=== PATIENT | female | born 1955 | race Caucasian/White ===

== ENCOUNTER → 2018-02-12 13:08 | Outpatient (CLI) | payer OTHER, SELFPAY ==
--- NOTE | 2018-02-12 | DI.RAD.S_ITS ---
PROCEDURE: XR KNEE LT 3V INDICATIONS: Acute pain of left knee TECHNIQUE: 3 views of the knee were acquired. COMPARISON: None. FINDINGS: Bones: No fractures or dislocations but there is moderate degenerative joint space thinning at the medial compartment and the patellofemoral joint and mild such degeneration of the lateral compartment. No suspicious bony lesions. Soft tissues: No joint effusion. No suspicious soft tissue calcifications. IMPRESSION: Mild to moderate left knee joint tricompartmental degenerative osteoarthritis without joint effusion or loose body, or trauma. Dictated by: Juan Jose Go M.D. on 02/12/2018 at 14:13 Approved by: Juan Jose Go M.D. on 02/12/2018 at 14:14
== END ==
PROVIDERS: PCP Nurse Practitioner; Visit Provider Nurse Practitioner
DX: M25.562 Pain in left knee (principal); M17.12 Unilateral primary osteoarthritis, left knee
CPT/HCPCS: 73562

== ENCOUNTER → 2018-11-01 10:45 | Outpatient (CLI) | payer OTHER, SELFPAY ==
--- NOTE | 2018-11-01 | DI.RAD.S_ITS ---
PROCEDURE: XR KNEE LT 3V INDICATIONS: KNEE PAIN TECHNIQUE: 3 views of the knee were acquired. COMPARISON: None. FINDINGS: Bones: No acute fracture dislocation. There is moderate medial femorotibial compartment narrowing. There are small tricompartmental osteophytes. Soft tissues: No joint effusion. No suspicious soft tissue calcifications. IMPRESSION: Mild knee osteoarthritis. Dictated by: Dora Cespedes M.D. on 11/01/2018 at 11:50 Approved by: Dora Cespedes M.D. on 11/01/2018 at 11:50
--- NOTE | 2018-11-01 | DI.RAD.S_ITS ---
PROCEDURE: XR HUMERUS RT 2V INDICATIONS: ARM PAIN TECHNIQUE: 2 views of the humerus were acquired. COMPARISON: None. FINDINGS: Bones: No fractures or dislocations. No suspicious bony lesions. There is mild acromioclavicular joint space narrowing. Soft tissues: No suspicious soft tissue calcifications. IMPRESSION: Mild degenerative change. No acute radiographic findings. Dictated by: Dora Cespedes M.D. on 11/01/2018 at 11:48 Approved by: Dora Cespedes M.D. on 11/01/2018 at 11:49
--- NOTE | 2018-11-01 | DI.RAD.S_ITS ---
PROCEDURE: XR HIP W PEL IF DONE BILAT 2V INDICATIONS: HIP PAIN TECHNIQUE: AP pelvis with lateral view(s) of the bilateral hip(s). COMPARISON: None. FINDINGS: Bones: No fractures or dislocations. Pelvic ring appears intact. There is mild bilateral hip joint space narrowing and osteophytosis. No suspicious bony lesions. Soft tissues: The visualized bowel gas pattern is normal. No suspicious soft tissue calcifications. Surgical clips are projected over the right iliac wing. IMPRESSION: Mild bilateral hip osteoarthritis. Dictated by: Dora Cespedes M.D. on 11/01/2018 at 11:49 Approved by: Dora Cespedes M.D. on 11/01/2018 at 11:50
== END ==
PROVIDERS: Family Provider Nurse Practitioner; PCP Nurse Practitioner; Visit Provider Nurse Practitioner
DX: M16.0 Bilateral primary osteoarthritis of hip (principal); M17.12 Unilateral primary osteoarthritis, left knee; M79.601 Pain in right arm; M25.562 Pain in left knee; M25.552 Pain in left hip; G89.29 Other chronic pain
CPT/HCPCS: 73060; 73521; 73562

== ENCOUNTER → 2019-06-02 12:12 | Outpatient (CLI) | payer OTHER, SELFPAY ==
--- NOTE | 2019-06-02 12:25 | DI.RAD.S_ITS ---
PROCEDURE: XR HAND RT MIN 3V INDICATIONS: RT HAND TENDONITIS TECHNIQUE: 3 views of the hand(s) acquired. COMPARISON: None. FINDINGS: Bones: No fractures or dislocations. Carpal bones are normally aligned. No suspicious bony lesions. Soft tissues: No suspicious soft tissue calcifications. IMPRESSION: Moderate arthritic change at the distal interphalangeal joints, no malalignment. Dictated by: Juan Jose Go M.D. on 06/02/2019 at 12:48 Approved by: Juan Jose Go M.D. on 06/02/2019 at 12:48
== END ==
PROVIDERS: Family Provider Nurse Practitioner; PCP Nurse Practitioner; Referring Provider Nurse Practitioner; Visit Provider Nurse Practitioner
DX: M77.9 Enthesopathy, unspecified (principal)
CPT/HCPCS: 73130

== ENCOUNTER → 2020-07-19 17:22 | Outpatient (CLI) | payer MEDICARE, SELFPAY ==
--- NOTE | 2020-07-19 | DI.RAD.S_ITS ---
PROCEDURE: XR HIP W PEL IF DONE RT 2V INDICATIONS: SCIATICA RT SIDE TECHNIQUE: AP pelvis with lateral view of the right hip. COMPARISON: [facility], CR, XR HIP W PEL IF DONE BILAT 2V, 11/01/2018, 11:18. FINDINGS: Bones: No acute fractures or dislocations. Pelvic ring appears intact. No suspicious bony lesions. Mild symmetric degenerative changes are seen in the hips bilaterally with mild joint space narrowing and lateral acetabular spurring. Enthesopathy is noted at the anterior superior iliac spines that is slightly worse on the right. A small enthesophyte is also seen at the right anterior inferior iliac spine. Mild degenerative changes are seen in the included lower lumbar spine and at the pubic symphysis. Soft tissues: The visualized bowel gas pattern is normal. No suspicious soft tissue calcifications. Surgical clips are seen in the right pelvis. IMPRESSION: No acute osseous abnormality. Mild symmetric bilateral hip osteoarthrosis. Dictated by: Dex Aldrich M.D. on 07/20/2020 at 9:18 Approved by: Dex Aldrich M.D. on 07/20/2020 at 9:23
--- NOTE | 2020-07-19 | DI.RAD.S_ITS ---
PROCEDURE: XR LUMBAR SPINE MIN 4V INDICATIONS: SCIATICA RT SIDE TECHNIQUE: 5 views of the lumbar spine were acquired, including bilateral oblique views. COMPARISON: None. FINDINGS: Bones: 5 nonrib-bearing vertebrae are present. There is grade 1 anterolisthesis of L4 on L5. No vertebral body compression fractures. No suspicious bony lesions. Mild multilevel disc space narrowing is seen throughout the lumbar spine with degenerative endplate changes including anterior and lateral spurring. Facet hypertrophy is seen at L4-5 and L5-S1. Soft tissues: Overlying bowel gas pattern is normal. No suspicious soft tissue calcifications. Atherosclerotic calcifications are seen in the aorta. A surgical port is seen projecting over the abdomen on AP view. Surgical clips are seen projecting over the right lower quadrant. Oblique images: Possible unilateral pars defect on the right at the L5 level. IMPRESSION: 1. Grade 1 anterolisthesis of L4 on L5. 2. Probable unilateral right L5 pars defect without L5-S1 spondylolisthesis. 3. Multilevel degenerative disc disease and facet hypertrophy as described above. Dictated by: Dex Aldrich M.D. on 07/20/2020 at 9:27 Approved by: Dex Aldrich M.D. on 07/20/2020 at 9:30
== END ==
PROVIDERS: Family Provider Nurse Practitioner; PCP Nurse Practitioner; Referring Provider Nurse Practitioner; Visit Provider Nurse Practitioner
DX: M51.16 Intervertebral disc disorders with radiculopathy, lumbar region (principal); M16.0 Bilateral primary osteoarthritis of hip; M43.16 Spondylolisthesis, lumbar region
CPT/HCPCS: 72110; 73502; 73522

== ENCOUNTER → 2020-10-05 11:00 | Outpatient (CLI) | payer MEDICARE, SELFPAY | PROVIDERS: Family Provider Nurse Practitioner; PCP Nurse Practitioner; Referring Provider Orthopaedic Surgery; Visit Provider Orthopaedic Surgery | DX: Z78.0 Asymptomatic menopausal state; M16.11 Unilateral primary osteoarthritis, right hip; E11.9 Type 2 diabetes mellitus without complications | CPT/HCPCS: 77080 ==

== ENCOUNTER → 2022-02-23 14:14 | Outpatient (ROUT) | payer MEDICARE, SELFPAY ==
[2022-02-24 06:40] LABS: Candida species Negative (Negative); Gardnerella vaginalis Negative (Negative); Trichomoas vaginalis Negative (Negative)
== END ==
PROVIDERS: Family Provider Nurse Practitioner; PCP Nurse Practitioner; Visit Provider Obstetrics & Gynecology
DX: N89.8 Other specified noninflammatory disorders of vagina (principal)
CPT/HCPCS: 87480; 87510; 87660

== ENCOUNTER → 2022-05-29 14:00 | Outpatient (CLI) | payer MEDICARE, SELFPAY ==
--- NOTE | 2022-05-29 14:08 | DI.RAD.S_ITS ---
PROCEDURE: XR HIP W PEL IF DONE ERNESTO MIN 4V INDICATIONS: HIP PAIN TECHNIQUE: AP pelvis with lateral view(s) of the bilateral hip(s). COMPARISON: None. FINDINGS: Bones: No fractures or dislocations. Pelvic ring appears intact. No suspicious bony lesions. Moderate bilateral hip osteoarthritic degenerative changes with osseous hypertrophy and mild joint space narrowing. Soft tissues: The visualized bowel gas pattern is normal. No suspicious soft tissue calcifications. Right lower quadrant surgical clips. IMPRESSION: Moderate bilateral hip osteoarthritis. Dictated by: Maritza Preston MD, PhD on 05/29/2022 at 15:02 Approved by: Maritza Preston MD, PhD on 05/29/2022 at 15:03
--- NOTE | 2022-05-29 14:08 | DI.RAD.S_ITS ---
PROCEDURE: XR LUMBAR SPINE MIN 4V INDICATIONS: HIP PAIN TECHNIQUE: 5 views of the lumbar spine were acquired, including bilateral oblique views. COMPARISON: [facility], CR, XR LUMBAR SPINE MIN 4V, 07/19/2020, 17:35. FINDINGS: Bones: 5 nonrib-bearing vertebrae are present. There is approximately 8 millimeters of L4-L5 anterolisthesis secondary to facet hypertrophy. No vertebral body compression fractures. No suspicious bony lesions. Spine degenerative disc disease and facet arthropathy. Soft tissues: Overlying bowel gas pattern is normal. No suspicious soft tissue calcifications. Oblique images: No pars defects. IMPRESSION: 1. Multilevel degenerative disc disease. 2. Multilevel facet arthropathy. 3. No fracture. No acute osseous lesion. If symptoms and/or clinical suspicion for pathology persists, evaluation with MRI should be considered for further assessment. 4. Grade 1 L4-L5 degenerative spondylolisthesis. Dictated by: Maritza Preston MD, PhD on 05/29/2022 at 15:03 Approved by: Maritza Preston MD, PhD on 05/29/2022 at 15:04
== END ==
PROVIDERS: Family Provider Nurse Practitioner; PCP Nurse Practitioner; Referring Provider Nurse Practitioner; Visit Provider Nurse Practitioner
DX: M51.16 Intervertebral disc disorders with radiculopathy, lumbar region (principal); M47.26 Other spondylosis with radiculopathy, lumbar region; M43.16 Spondylolisthesis, lumbar region; M16.0 Bilateral primary osteoarthritis of hip; M25.551 Pain in right hip; G89.29 Other chronic pain
CPT/HCPCS: 72110; 73522

== ENCOUNTER → 2023-06-24 15:33 | Outpatient (CLI) | payer MEDICARE, SELFPAY ==
--- NOTE | 2023-06-24 | DI.MRI.S_ITS ---
PROCEDURE: MR LUMBAR SPINE WO CON INDICATIONS: Radiculopathy, lumbar region TECHNIQUE: Noncontrast sagittal T1 spin echo and T2 fast echo, sagittal STIR, and T2 fast spin echo through the lumbar spine. In cases with scoliosis, additional coronal T2 fast spin echo may be performed. COMPARISON: [facility], CR, XR LUMBAR SPINE MIN 4V, 05/29/2022, 14:10. FINDINGS: Image quality: Excellent. Alignment and Curvature: 6 mm anterolisthesis L4 on L5. Bone Marrow: Marrow is of normal overall signal. No acute vertebral body compression fractures. Spinal Cord: Conus medullaris terminates at the L1-L2 level. Visualized cord demonstrates normal signal and size. Paraspinous Soft Tissues: No paravertebral masses. T12-L1: No canal stenosis or foraminal stenosis. L1-L2: No canal stenosis or foraminal stenosis. L2-L3: Mild disc height loss. Disc bulge. Facet hypertrophy. No canal stenosis or foraminal stenosis. L3-L4: Disc bulge. Facet hypertrophy. No canal stenosis or foraminal stenosis. L4-L5: 6 mm anterolisthesis of L4 on L5. Exuberant facet hypertrophy. Diffuse disc bulge with small superimposed central posterior disc protrusion. Severe canal stenosis. [id number] bilateral foraminal stenosis. L5-S1: Disc bulge. Facet hypertrophy. No canal stenosis or foraminal stenosis. IMPRESSION: 1. Underlying multilevel facet arthropathy. 2. Findings are significant at L4-L5. There is exuberant facet hypertrophy with anterolisthesis of L4 on L5. There is a disc bulge and focal disc protrusion. There is severe canal stenosis. 3. No canal stenosis or significant foraminal stenosis at other levels. Dictated by: Chapincito Oropeza M.D. on 06/24/2023 at 17:40 Approved by: Chapincito Oropeza M.D. on 06/24/2023 at 17:44
== END ==
PROVIDERS: Family Provider Nurse Practitioner; PCP Nurse Practitioner; Referring Provider Orthopaedic Surgery; Visit Provider Orthopaedic Surgery
DX: M47.26 Other spondylosis with radiculopathy, lumbar region (principal); M47.27 Other spondylosis with radiculopathy, lumbosacral region; M51.16 Intervertebral disc disorders with radiculopathy, lumbar region; M51.17 Intervertebral disc disorders with radiculopathy, lumbosacral region; M43.16 Spondylolisthesis, lumbar region
CPT/HCPCS: 72148